=== PATIENT | female | born 1960 | race Caucasian/White ===

== ENCOUNTER → 2016-08-06 | Outpatient (CLI) | payer OTHER ==
--- NOTE | 2016-08-06 14:48 | MR ---
EXAMINATION TYPE: MR lumbar spine wo con DATE OF EXAM: 08/06/2016 COMPARISON: NONE HISTORY: Rt side pain, ddd lsp CONTRAST: 0 mL intravenous MultiHance. TECHNIQUE: Multiplanar, multisequence images of the lumbar spine were acquired. FINDINGS: Cord terminates at L1 level. L5-S1: Subligamentous disc herniation is present with some extension beyond the endplate of L5 and S1 . This may have mild anterior thecal sac contact. No AP spinal canal stenosis present. Neural foramen are patent. L4-L5: Minimal disc bulging is anterior thecal sac flattening. No AP spinal canal stenosis present. N eural foramen are patent. L3-L4: No significant disc bulge or disc herniation. No spinal canal stenosis. No foraminal stenosi s. Mild facet degenerative changes present at this level.. L2-L3: No significant disc bulge or disc herniation. No spinal canal stenosis. No foraminal stenosi s. . L1-L2: No significant disc bulge or disc herniation. No spinal canal stenosis. No foraminal stenosi s. . T12-L1: No significant disc bulge or disc herniation. No spinal canal stenosis. No foraminal stenos is. . Note is made of a small cyst in the inferior pole right kidney. A posterior renal cysts also present within the midportion IMPRESSION: 1. Subligamentous disc herniation L5-S1 with anterior thecal sac contact. No stenosis or impingement is evident. 2. Minimal disc bulge L4-5 with anterior thecal sac contact.
--- NOTE | 2016-08-15 11:24 | P.ARTDOP ---
Arterial Doppler LOWER EXTREMITY ARTERIAL DOPPLER: DATE OF SERVICE: 08/06/2016 Reason for study: Left leg pain. Doppler waveforms: Multiphasic bilaterally throughout.. Pressure gradients: None. Ankle-brachial indices: Greater than 1 bilaterally. Impression: Normal study.
== END | disposition home or self-care (01) ==
LOC: RADUSWWP 12:39
PROVIDERS: ATTEND Family Medicine
DX: M51.27 Other intervertebral disc displacement, lumbosacral region (principal)
CPT/HCPCS: 72148; 93922

== ENCOUNTER → 2024-02-05 | Outpatient (CLI) | payer OTHER ==
--- NOTE | 2024-02-05 13:52 | CTL ---
EXAMINATION TYPE: CT Low Dose Lung DATE OF EXAM ORDERED: 02/05/2024 COMPARISON: None CLINICAL INDICATION: Female, 63 years old with history of Z87.891 NICOTINE DEPENDENCE; PHH, Personnel tobacco use, Lung cancer screening, History of Smoking/tobacco use. TECHNIQUE: Low dose computed tomography scan was performed through the chest at 1 mm thick sections a nd reconstructed images in multiple planes at 1 mm and [address] DLP: [address] CTDI: 1.8 mGy Automated exposure control for dose reduction was used. CT DIAGNOSTIC QUALITY: Satisfactory FINDINGS: Nodules: Right lower lobe anterior calcification granuloma. No clinically significant pulmonary nodules. LUNGS: COPD: Severity: Mild to moderate paraseptal emphysematous changes. Fibrosis: Severity: Mild to moderate subarticular reticular opacities consistent with fibrotic change s. No honeycombing. Lymph nodes: None Other findings: None RIGHT PLEURAL SPACE: Effusion: None Calcification: None Thickening: None Pneumothorax: None LEFT PLEURAL SPACE: Effusion: None Calcification: None Thickening: None Pneumothorax: None HEART: Heart Size: Normal Coronary Calcification: Small Pericardial Effusion: None OTHER FINDINGS: Upper abdomen: None Bony thorax: None Supraclavicular region: None Other: None IMPRESSION: 1. No clinically significant pulmonary nodules. Right lower lobe calcified granuloma. 2. Mild to moderate paraseptal emphysematous and pulmonary fibrotic changes. CT LUNG RAD AND CT CHEST RECOMMENDATION: Lung-Rad 2 Benign Appearance or Behavior: Continue annual sc reening with LDCT in 12 months. S Modifier (other clinically significant findings): None [facility], , 02/05/2024 1:50 PM
== END | disposition home or self-care (01) ==
LOC: RADCTMAIN 12:33
PROVIDERS: ATTEND Family Medicine
DX: Z12.2 Encounter for screening for malignant neoplasm of respiratory organs (principal); J84.10 Pulmonary fibrosis, unspecified; J43.9 Emphysema, unspecified; Z87.891 Personal history of nicotine dependence
CPT/HCPCS: 71271